=== PATIENT | female | born 2000 | race Caucasian/White ===

== ENCOUNTER 2020-10-16 22:32 | Inpatient (IN) | payer SELFPAY ==
[2020-10-16 22:36] VITALS: BP 109/72; PULSE 67; RESP 18; TEMP 36.6; O2SAT 100; BMI 21.0
--- NOTE | 2020-10-16 22:51 | W.ED.PSYCH ---
HPI - Psych General: Chief Complaint: Psychiatric Symptoms Stated Complaint: 96 HOUR HOLD Time Seen by Provider: 10/16/20 22:41 Source: patient Mode of arrival: ambulatory Limitations: no limitations History of Present Illness: HPI Narrative: 20-year-old female brought here by police under a 96-hour hold for suicidality. Patient states she has been having suicidal thoughts with a plan of hanging herself off a bridge. She has a history of bipolar and has not been taking her meds. She denies any worsening or improving factors. Associated symptoms: Reports depression and suicidal ideation Review of Systems Const: Denies: fever(s), chills, body aches or change in appetite Eyes: Denies: blurry vision or eye discomfort ENMT: Denies: throat pain or dental pain Card: Denies: chest pain Resp: Denies: dyspnea GI: Denies: abdominal pain, nausea, vomiting or diarrhea : Denies: dysuria Musc: Denies: neck pain or back pain Skin/Breast: Denies: rash Neuro: Denies: headache(s) Psych: Reports: depression and suicidal ideation Arnold/Lymph: Denies: easy bruising All/Imm: Denies: urticaria PFSH ED PFSH: Social History (Updated 05/30/20 @ 09:02 by French Wild LPN) Smoking and tobacco status: current every day smoker cigarettes Packs smoked per day: 0.25 Years cigarettes smoked: 2 Quit status (tobacco): has tried quititng Number of times tried to quit tobacco: 4 Second hand smoke exposure: Yes Current gender identity: Female Female Reproductive History: Date of last menstrual period: 10/13/20 Physical Exam Const: COMMON NORMALS: no acute distress, patient oriented x3 and healthy appearing HENMT: COMMON NORMALS: normocephalic and atraumatic HEAD & SCALP: normocephalic and atraumatic Eye: COMMON NORMALS: Equal, round and reactive pupils present and EOMs intact bilaterally PUPIL: Yes Equal, round and reactive pupils present Neck/C-Spine: COMMON NORMALS: full ROM and supple Chest: COMMONS NORMALS: normal inspection of the chest and normal palpation of entire chest wall Resp: COMMON NORMALS: normal respiratory effort, No retractions, No use of accessory muscles and clear to auscultation bilaterally AUSCULTATION: clear to auscultation bilaterally Cardio: COMMON NORMALS: regular rate, regular rhythm and No murmurs present (Cardio) RATE: regular rate RHYTHM: regular rhythm GI: COMMON NORMALS: Normal to inspection, nondistended, normoactive bowel sounds present, Soft to palpation, non-tender and no masses PALPATION: Yes Soft to palpation Extremity: COMMON NORMALS: normal to inspection and full ROM Neuro: COMMON NORMALS: patient oriented x3, moves all extremities and no focal motor deficits Psych: COMMON NORMALS: mental status grossly normal and cooperative THOUGHT CONTENT: Yes Suicidality present Skin: COMMON NORMALS: no rashes or lesions noted and no wounds GENERAL SKIN EXAM: no rashes or lesions noted MDM - Psych MDM Narrative: Medical decision making narrative: Patient presents here with depression along with suicidal ideation. Patient is well-appearing here and is medically cleared. I spoke to Dr. Hickman and will admit to the psychiatric unit. Lab Data: Labs: Lab Results 10/16/20 10/16/20 Range/Units 22:54 22:54 WBC 6.4 (4.5-13.0) 10^3/ uL RBC 4.20 (4.1-5.3) 10^6/u L Hgb 11.9 (11.5-15.3) g/dL Hct 37.8 (37.0-47.0) % MCV 90.0 (81-99) fL MCH 28.3 (28.0-34.0) pg MCHC 31.5 (30.0-36.0) g/dL RDW 12.2 (12.1-15.1) % Plt Count 353 (130-400) 10^3/c mm MPV 9.1 (7.4-10.4) fL Neut % (Auto) 44.7 % Lymph % (Auto) 43.3 % [place] % (Auto) 9.7 % Eos % (Auto) 1.6 % Baso % (Auto) 0.5 % Neut # (Auto) 2.86 (1.8-8.0) 10^3/u L Lymph # (Auto) 2.8 (1.5-6.5) 10^3/u L [place] # (Auto) 0.6 (0.2-0.9) 10^3/u L Eos # (Auto) 0.1 (0.0-0.8) 10^3/u L Baso # (Auto) 0.0 (0.0-0.1) 10^3/u L Nucleated RBC % (a uto) 0 % Nucleated RBCs # 0.0 /100WBC Sodium 141 (136-145) mmol/L Potassium 3.7 (3.5-5.1) mmol/L Chloride 106 (98-107) mmol/L Carbon Dioxide 27 (22-29) mmol/L Anion Gap 11.7 (5-19) BUN 14 (6-20) mg/dL Creatinine 0.7 (0.5-0.9) mg/dL GFR Calculation 106.7 (90-130) mL/min Glucose 88 (65-115) mg/dL Calculated Osmolal ity 292 (285-295) mOsm/k g Calcium 9.0 (8.5-10.5) mg/dL Total Bilirubin 0.2 (0.15-1.2) mg/dL AST 17 (0-32) U/L ALT 9 (0-33) U/L Alkaline Phosphata se 63 (35-105) IU/L Total Protein 7.5 (6.6-8.7) g/dL Albumin 4.0 (3.5-5.2) g/dL Globulin 3.5 (1.3-4.6) g/dL Salicylates < 0.3 L (3-10) mg/dL Acetaminophen < 5.0 L (10-30) ug/mL Ethyl Alcohol < 10 (0-10) mg/dL Discharge Plan Discharge Patient Disposition: Admitted As Inpatient Clinical Impression: Suicidal ideation Condition: Stable Coding Level of Care Code ED Windows Technical Specialist for Dev Fwd Exam Comprehensive
[2020-10-16 23:05] LABS: Basophils % 0.5 %; Eosinophils # 0.1 10^3/uL (0.0-0.8); Eosinophils % 1.6 %; Hematocrit 37.8 % (37.0-47.0); Hemoglobin 11.9 g/dL (11.5-15.3); Lymphocytes # 2.8 10^3/uL (1.5-6.5); Lymphocytes % 43.3 %; Mean Corpuscular HGB Conc 31.5 g/dL (30.0-36.0); Mean Corpuscular Hemoglobin 28.3 pg (28.0-34.0); Mean Platelet Volume 9.1 fL (7.4-10.4); Monocytes # 0.6 10^3/uL (0.2-0.9); Monocytes % 9.7 %; Neutrophils # 2.86 10^3/uL (1.8-8.0); Neutrophils % 44.7 %; Nucleated Red Blood Cells % 0 %; Platelet Count 353 10^3/cmm (130-400); Red Cell Distribution Width 12.2 % (12.1-15.1); White Blood Count 6.4 10^3/uL (4.5-13.0)
[2020-10-16 23:29] LABS: Acetaminophen < 5.0 ug/mL (10-30); Alanine Aminotransferase 9 U/L (0-33); Alcohol Level < 10 mg/dL (0-10); Alkaline Phosphatase 63 IU/L (35-105); Anion Gap 11.7 (5-19); Aspartate Amino Transferase 17 U/L (0-32); Blood Urea Nitrogen 14 mg/dL (6-20); Carbon Dioxide 27 mmol/L (22-29); Chloride 106 mmol/L (98-107); Globulin 3.5 g/dL (1.3-4.6); Glomerular Filtration Rate 106.7 mL/min (90-130); Glucose 88 mg/dL (65-115); Osmolality Calculated 292 mOsm/kg (285-295); Potassium 3.7 mmol/L (3.5-5.1); Salicylate < 0.3 mg/dL (3-10); Sodium 141 mmol/L (136-145); Total Bilirubin 0.2 mg/dL (0.15-1.2); Total Protein 7.5 g/dL (6.6-8.7)
[2020-10-17 00:19] LABS: HCG Qualitative Urine. Negative (Negative)
[2020-10-17 00:52] LABS: Amphetamines Screen Urine Negative (Negative); Barbiturates Screen Urine Negative (Negative); Benzodiazepines Screen Urine Negative (Negative); Cocaine Screen Urine Negative (Negative); Opiate Screen Urine Positive (Negative); PCP Screen Urine Negative (Negative); THC Screen Urine Negative (Negative)
[2020-10-17 01:07] VITALS: BP 108/64; PULSE 72; RESP 18; TEMP 36.6; O2SAT 100
[2020-10-17 01:12] VITALS: BP 122/68; PULSE 83; RESP 16; O2SAT 98
[2020-10-17 06:00] VITALS: BP 108/64; PULSE 72; RESP 18; TEMP 36.6; O2SAT 100
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
[2020-10-17 14:00] VITALS: BP 110/75; PULSE 65; RESP 16; TEMP 37.1; O2SAT 98
[2020-10-17] MEDS: citalopram 20 mg Tablet PO (14:41)
[2020-10-17 21:12] VITALS: BP 91/55; PULSE 70; RESP 18; TEMP 36.8; O2SAT 98
[2020-10-17] MEDS: ibuprofen 600 mg Tablet PO (23:25)
[2020-10-17] MEDS: prazosin 1 mg Capsule 2 MG PO (23:25)
[2020-10-18 06:00] VITALS: BP 88/47; PULSE 71; RESP 15; TEMP 36.8; O2SAT 98
[2020-10-18] MEDS: citalopram 20 mg Tablet 40 MG PO (07:37)
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
[2020-10-18 16:29] VITALS: BP 88/47; PULSE 71; RESP 15; TEMP 36.8; O2SAT 98
== END 2020-10-18 17:33 | disposition home or self-care (01) | DRG 885 ==
LOC: ER 23:20 → NP 23:52
PROVIDERS: Admitting Provider Psychiatry & Neurology Psychiatry; Emergency Provider Emergency Medicine; Visit Provider Psychiatry & Neurology Psychiatry
DX: F33.2 Major depressive disorder, recurrent severe without psychotic features (principal); R45.851 Suicidal ideations; Z91.14 Patient's other noncompliance with medication regimen; F17.210 Nicotine dependence, cigarettes, uncomplicated; Z91.5 Personal history of self-harm; F43.12 Post-traumatic stress disorder, chronic; F12.10 Cannabis abuse, uncomplicated; F10.10 Alcohol abuse, uncomplicated; F60.3 Borderline personality disorder
CPT/HCPCS: 80053; 80306; 80307; 81025; 85025; 90686; 99285

== ENCOUNTER → 2020-10-23 12:22 | Outpatient (BNVA) | payer SELFPAY | PROVIDERS: PCP Family Medicine; Visit Provider Family Medicine | DX: E16.2 Hypoglycemia, unspecified (principal) | CPT/HCPCS: 36416; 82962 ==

== ENCOUNTER → 2020-12-02 14:38 | Outpatient (BNVA) | payer SELFPAY | PROVIDERS: PCP Family Medicine; Visit Provider Nurse Practitioner Family | DX: Z11.3 Encounter for screening for infections with a predominantly sexual mode of transmission (principal); E16.2 Hypoglycemia, unspecified; Z71.89 Other specified counseling | CPT/HCPCS: 83036; 86592; 87491; 87530; 87591; 87661; 87806 ==

== ENCOUNTER → 2021-04-17 10:47 | Outpatient (BNVA) | payer SELFPAY | PROVIDERS: PCP Family Medicine; Visit Provider Nurse Practitioner Family | DX: I37.0 Nonrheumatic pulmonary valve stenosis (principal); R20.2 Paresthesia of skin; R47.81 Slurred speech; R07.9 Chest pain, unspecified; F17.210 Nicotine dependence, cigarettes, uncomplicated; Z71.89 Other specified counseling | CPT/HCPCS: 80053; 82607; 83735; 84443; 85025 ==

== ENCOUNTER 2021-04-18 14:58 | Outpatient (CLI) | payer SELFPAY ==
--- NOTE | 2021-04-18 15:30 | CT_ITS ---
WS: [id number] Exam: CT head wo con* [id number] Date/Time of Exam: 04/18/2021 3:29 PM Reason For Exam: R47.81 - Slurred speech DLP: 992.[address] scans at [facility] use at least one of these dose optimization techniques: automat ed exposure control; mA and/or kV adjustment per patient size (includes targeted exams where dose is matched to clinical indication); or iterative reconstruction. No sign of acute intracranial bleed or space-occupying mass. The ventricles and basal cisterns are no rmal in appearance. No extra-axial fluid collections are seen. The skull is intact. The facial sinuse s are clear. There may be a small amount of fluid in the left mastoids and middle ear cavity. CT/CT head wo con* [id number] IMPRESSION: 1. Normal noncontrast CT scan of the brain. 2. Probable small amount of fluid in the left mastoids and left middle ear cavi ty
== END 2021-04-18 14:59 | disposition home or self-care (01) ==
PROVIDERS: PCP Family Medicine; Visit Provider Nurse Practitioner Family
DX: R47.81 Slurred speech (principal); R20.2 Paresthesia of skin
CPT/HCPCS: 70450

== ENCOUNTER → 2022-07-14 11:28 | Outpatient (BNVA) | payer BC, MEDICAID, SELFPAY | PROVIDERS: PCP Nurse Practitioner Family; Visit Provider Nurse Practitioner Family | DX: M67.432 Ganglion, left wrist (principal); R73.9 Hyperglycemia, unspecified | CPT/HCPCS: 80053; 80061; 83036; 84439; 84443; 85025 ==

== ENCOUNTER → 2022-08-07 07:49 | Outpatient (BNVA) | payer BC, MEDICAID, SELFPAY | PROVIDERS: PCP Nurse Practitioner Family; Referring Provider Nurse Practitioner Family; Visit Provider Student in an Organized Health Care Education/Training Program | DX: M67.432 Ganglion, left wrist (principal) | CPT/HCPCS: 73110 ==

== ENCOUNTER 2022-08-28 07:49 | Day surgery (SDC) | payer BC, MEDICAID, SELFPAY ==
[2022-08-27 09:40] VITALS: BMI 17.7
[2022-08-28 08:15] VITALS: BP 117/52; PULSE 59; RESP 18; TEMP 36.6; O2SAT 99
[2022-08-28 08:33] LABS: Glucose Point of Care 87 mg/dL (70-110)
[2022-08-28] MEDS: sodium chloride 0.9% 1,000 ML 30 ML IV ×2 (08:37→10:46)
[2022-08-28] MEDS: acetaminophen 1,000 MG/100 ML PIGGYBACK 400 MG IV (08:37)
[2022-08-28] MEDS: ketorolac 30 mg/mL INJ IVP (08:38)
[2022-08-28 08:47] LABS: OR HCG Qualitative Urine Negative (Negative)
--- NOTE | 2022-08-28 09:58 | W.PM.OPSUD ---
Surgery/Procedure H&P Update DATE OF PROCEDURE: August 28, 2022 DATE H&P PERFORMED: 08/07/22 CHANGES TO PREVIOUS DOCUMENTATION: None PREOP DIAGNOSIS: Left dorsal wrist ganglion cyst PRIMARY INDICATION FOR PROCEDURE: Left dorsal wrist ganglion cyst excision PLANNED PROCEDURE: Operation Date: 08/28/22 10:10 Proposed Procedures p excision of ganglion cyst left [id number](Left) - Gabriel Hill DO
--- NOTE | 2022-08-28 10:06 | ANES.PREANE2 ---
Pre-Anesthetic Assessment Height/Weight: Height 1.75 m Weight 54.431 kg Temp Pulse Resp BP Pulse Ox O2 Del Method 97.8 F 59 L 18 117/52 99 08/28/22 08:15 08/28/22 08:15 08/28/22 08:15 08/28/22 08:15 08/28/22 08:15 08/28/22 08:40 Preop Diagnosis: Left dorsal wrist ganglion cyst Operation Date: 08/28/22 10:10 Proposed Procedures p excision of ganglion cyst left [id number](Left) - Gabriel Norton, DO Familial anesthetic complications: none Was Beta Ana Laura taken within 24 hours: N/A Was Clonidine taken within 24 hours: N/A Last intake: Intake Last Liquid Date 08/27/22 Last Liquid Time 22:00 Last Solid Date 08/27/22 Last Solid Time 22:00 Social Tobacco (Ladi) and No alcohol Exam alert, oriented x 3 and regular rate & rhythm Airway Submandibular: within normal limits Cervical ROM: within normal limits Mallampati: Class II Dentition: chipped Pulmonary Asthma Neuropsych Anxiety and Depression Anesthetic Plan ASA status: 2 Anesthesia: Choice Medications/Allergies Home Medications Medication Instructions Recorded Confirmed Last Taken Type albuterol sulfate 90 mcg/actuation 2 puff inhalation Q6H PRN 07/14/22 08/28/22 08/25/22 Rx aerosol inhaler (Ventolin HFA) shortness of breath or wheezing #8.5 grams budesonide-formoterol HFA 160 1 inh inhalation BID #10.2 grams 07/14/22 08/28/22 2 Weeks Ago Rx mcg-4.5 mcg/actuation aerosol ~08/14/22 inhaler (Symbicort) Allergies Allergy/AdvReac Type Severity Reaction Status Date / Time No Known Allergies Allergy Verified 08/07/22 07:40 Current Medications Generic Name Dose Route Start Last Admin Trade Name Freq PRN Reason Stop Dose Admin Sodium Chloride 1,000 mls @ 30 mls/hr 08/28/22 08:30 08/28/22 08:37 Sodium Chloride 0.9% IV 08/29/22 08:29 30 mls/hr .Q24H WALE Administration PFSH Anesthesia Medical History Heart murmur Hypoglycemia Family History Sister Diabetes type 1, dx age 13 Other CAD (coronary artery disease) Social History Smoking and tobacco status: current every day smoker cigarettes Packs smoked per day: 0.25 Years cigarettes smoked: 2 and e-cigarettes E-Cigarette Details: vaporizer device E-cig/vape details: 5 mg/two weeks Quit status (tobacco): has tried quititng Number of times tried to quit tobacco: 4 Second hand smoke exposure: Yes Alcohol intake: current Alcohol intake frequency: 3 or more drinks per day Alcohol type: beer Desire information about substance/drug rehabilitation?: No Lives independently: Yes Household members: significant other Marital status: Single service: No Current occupational status: employed Current occupation: [employer] Pets and animals: No History of recent travel: No Leisure activites: sports and music Sexually active: Yes Current gender identity: Male, Female and Trans [id number] Special nolan needs: No Agree to transfusion: Yes Female Reproductive History Date of last menstrual period: 10/14/20 Data Anesthesia Cardiac Studies: No Data to Display
[2022-08-28] MEDS: ceFAZolin 2,000 MG in sodium chloride 0.9% (plus) 50 ML 100 MG IV (10:47)
[2022-08-28] MEDS: sodium bicarbonate 4.2% 0.5 mEq/mL SDV 5mL INTRADERMA (11:13)
[2022-08-28 11:33] VITALS: BP 109/67; PULSE 67; RESP 20; TEMP 36.7; O2SAT 99
--- NOTE | 2022-08-28 11:35 | P.OP_ITS ---
Brief Operative Note Date of procedure: 09/01/22 Pre-op diagnosis: Painful left dorsal wrist ganglion cyst Post-op diagnosis: same Procedure Done: Left dorsal wrist ganglion cyst excision Surgeon: Gabriel Hill Estimated blood loss (mL): 2 Complications: None Post-op Plan: Patient taken to PACU in stable condition recovering well dressings on in place clean dry and intact. Will receive appropriate discharge instructions as well as pain medication postoperatively. Follow-up with me in the office in 2 weeks. Patient understands agrees with current plan. All questions answered. Condition: stable Disposition: same day Coding Level of Care Code Acute Spa Experience Coordinator for [facility]
--- NOTE | 2022-08-28 11:35 | P.OP_ITS ---
Operative Report Date of procedure: August 28, 2022 Pre-op diagnosis: Preop Diagnosis Left dorsal wrist ganglion cyst Post-op diagnosis: Left dorsal wrist ganglion cyst Procedure done: Left dorsal wrist ganglion cyst excision Specimens removed/disposition: Left dorsal wrist ganglion cyst excised and sent for pathology Surgeon: Gabriel Hill DO Estimated blood loss: 2 mL 13 minutes IV fluids: 500 mL Complications: None Findings: See operative report narrative Condition: stable Disposition: same day Brief History: Patient's been worked up in the outpatient setting and findings consistent with preoperative diagnosis. Patient has a left dorsal wrist ganglion cyst that is continued to grow in size of a severely painful and debilitating to patient's activities. Patient is young and very active and utilizes her hands a lot. We talked about treatment options as far as nonoperative and operative intervention. At this point time she like a more permanent solution in the lowest chance of recurrence and as result through shared decision making we agreed to proceed with a left dorsal wrist ganglion cyst excision. She understands risk benefits complication alternatives surgical nonsurgical treatment options. Understanding risk of surgery she agrees to proceed. All questions answered. Consent obtained in the office. Procedure: Patient seen evaluate in the preoperative holding area. Consent was signed and reviewed with patient. All questions were answered at that time. Correct extremity was then marked. Once seen evaluated by anesthesia patient was then brought back to the operative suite. Patient was then placed in supine position all bony prominences well-padded patient was properly secured to the bed. An armboard was then applied for the right upper extremity. A nonsterile tourn iquet was applied to the right upper extremity arm. Patient then underwent anesthesia per the anesthesia department. Once appropriately anesthetized the right upper extremity was then prepped and draped in standard orthopedic fashion. Final timeout performed. Patient received appropriate preoperative antibiotics. Under sterile aseptic technique I began with local anesthetic for my preplanned surgical site. Then I utilized an Esmarch tourniquet to exsanguinate the left upper extremity to 250 mmHg Patient had a large soft mobile ganglion cyst which a incision was then centered longitudinally directly over the cyst. Sharp scalpel incision was made through skin and subcutaneous tissue. I then switched to dissection scissors and spread longitudinally to identify branches of the superficial radial nerve. These were protected throughout the case. I immediately encountered the ganglion cyst which was just distal to the extensor retinaculum and between the third and fourth dorsal compartments. I then protected the tendons and identified the ganglion cyst subsequently dissected circumferentially all the way to the base which was connected to the dorsal capsule. This was then transected at the base with bipolar electrocautery and I utilized bipolar electrocautery to to seal off the dorsal capsule and prevent any further cyst recurrence. Cyst was then sent for pathology. I then thoroughly irrigated the wound bed tourniquet was deflated. Hemostasis was satisfactory with bipolar electrocautery. I then closed the incision in layered fashion with 3-0 Vicryl suture subcutaneously and running horizontal mattress nylon stitch for skin. Xeroform over the incisions 4 x 4's ABD soft roll and a volar splint was applied. Patient was then awakened from anesthesia and taken back in stable condition. Disposition: Patient taken back in stable condition recovering well. Patient will receive appropriate discharge instructions as well as pain medication postoperatively. We will follow-up with me in the office in 2 weeks. Patient understands of any questions or concerns and contact the office.
--- NOTE | 2022-08-28 11:35 | PM.PACU ---
PACU note Narrative: Patient taken to PACU in stable condition recovering well. Pain well controlled. Patient has decreased sensation secondary to local anesthesia. Fingertips warm well perfused. Patient able to wiggle fingers. Dressings clean dry and intact. Exam: awake Disposition: discharged
[2022-08-28 11:38] VITALS: BP 121/59; PULSE 104; RESP 20; O2SAT 100
[2022-08-28 11:43] VITALS: BP 101/61; PULSE 81; RESP 19; TEMP 36.8; O2SAT 100
[2022-08-28 11:49] VITALS: BP 164/83; PULSE 56; RESP 18; TEMP 36.4; O2SAT 98
[2022-08-28 12:00] VITALS: BP 109/59; PULSE 61; RESP 18; O2SAT 99
--- NOTE | 2022-08-28 14:46 | ANE.PACU2 ---
Inpatient post-anesthesia follow up: Airway intact: Yes Vital signs: Temperature 97.6 F Pulse Rate 61 Respiratory Rate 18 Blood Pressure 109/59 Pulse Oximetry 99 Oxygen Delivery Me thod Room Air Oxygen Flow Rate 6 Fraction of Inspir ed Oxygen Hydration adequate: Yes Nausea and vomiting: No Pain level: 2 Mental status: Baseline
== END 2022-08-28 12:36 | disposition home or self-care (01) ==
PROVIDERS: Anesthesiology; Visit Provider Student in an Organized Health Care Education/Training Program
PROC: (CPT 25111; principal; 2022-08-28 10:00)
DX: M67.432 Ganglion, left wrist (principal); J45.909 Unspecified asthma, uncomplicated; F17.210 Nicotine dependence, cigarettes, uncomplicated
CPT/HCPCS: 25111; 36416; 82962; 84703; 88304; J0131; J0690; J1885; J2250; J2704; J3010; J7030

== ENCOUNTER → 2022-11-16 08:23 | Outpatient (BNVA) | payer BC, MEDICAID, SELFPAY | PROVIDERS: PCP Nurse Practitioner Family; Visit Provider Internal Medicine | DX: E16.2 Hypoglycemia, unspecified (principal) | CPT/HCPCS: 82533; 84305; 84439; 84443 ==

== ENCOUNTER 2023-01-21 19:54 | Emergency (ER) | payer OTHER, BC, MEDICAID, SELFPAY ==
[2023-01-21 20:14] VITALS: BP 135/86; PULSE 83; RESP 18; TEMP 36.8; O2SAT 100
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
--- NOTE | 2023-01-27 15:07 | DCPLANNER ---
Addendum entered by Marjan Kirkland 01/27/23 15:14: Patient called supervisor case loading back, declined getting established at this time. Original Note: mobile development manager called patient due to no primary care physician - no answer at this time.
== END 2023-01-21 20:45 | disposition home or self-care (01) ==
PROVIDERS: Emergency Provider Physician Assistant
DX: T23.291A Burn of second degree of multiple sites of right wrist and hand, initial encounter (principal); T22.212A Burn of second degree of left forearm, initial encounter; F17.210 Nicotine dependence, cigarettes, uncomplicated; X10.2XXA Contact with fats and cooking oils, initial encounter; Y92.511 Restaurant or cafe as the place of occurrence of the external cause; Y99.0 Civilian activity done for income or pay
CPT/HCPCS: 99283